=== PATIENT | male | born 1950 | race Caucasian/White ===

== ENCOUNTER → 2017-09-14 | Outpatient (CLI) | payer MEDICARE, OTHER ==
--- NOTE | 2017-09-14 13:45 | US ---
EXAMINATION TYPE: US thyroid st tissue head/neck DATE OF EXAM: 09/14/2017 COMPARISON: NONE CLINICAL HISTORY: E04.1 thyroid nodule; patient feels nodes superior neck bilaterally GLAND SIZE: Right Lobe: 5.1 x 1.6 x 1.7cm cm Overall Parenchyma: homogenous Left Lobe: 4.6 x 1.7 x 1.6 cm Overall Parenchyma: homogeneous Isthmus Thickness: 0.5 cm NODULES RIGHT: # of nodules measured on right: 0 LEFT: # of nodules measured on left: 0 ISTHMUS: # of nodules measured in the isthmus: 0 Bilateral neck scanned: Superior to right thyroid a lymph node is seen = 1.6 x 0.7 x 0.6cm and superi or to left thyroid a lymph node is seen = 1.0 x 0.6 x 0.4cm. Thyroid gland is normal in size and fairly homogeneous echotexture without evidence of suspicious serena id or cystic nodules. There are benign-appearing subcentimeter lymph nodes throughout the neck bilate rally with retention of normal fatty hilum marked by technologist on images saved. IMPRESSION: Unremarkable study as detailed above
== END | disposition home or self-care (01) ==
LOC: RADUSWWP 12:03
PROVIDERS: ATTEND Otolaryngology
DX: E04.1 Nontoxic single thyroid nodule (principal)
CPT/HCPCS: 76536

== ENCOUNTER → 2018-06-05 | Outpatient (CLI) | payer MEDICARE, OTHER | END | disposition home or self-care (01) | LOC: LABWHC1 12:37 | PROVIDERS: ATTEND Otolaryngology | DX: J30.89 Other allergic rhinitis (principal) | CPT/HCPCS: 36415 ==

== ENCOUNTER → 2020-09-16 | Outpatient (CLI) | payer MEDICARE, OTHER ==
--- NOTE | 2020-09-17 03:21 | MR ---
EXAMINATION TYPE: MR iac wo/w con DATE OF EXAM: 09/16/2020 COMPARISON: None HISTORY: Vertigo, hearing changes, attention to left. CONTRAST: Standard multiplanar, multisequence MRI departmental protocol utilizing 10 mL intravenous Gadavist ga dolinium contrast. Ventricles have fairly normal size. There is no mass effect nor midline shift. There is no sign of in tracranial hemorrhage. Diffusion images show no evidence of an acute infarct. There is mild cerebral atrophy. On the T2 and FLAIR images there are scattered multiple foci of abnormal increased signal at the alcocer-white matter junction of both cerebral hemispheres. These measure up to 5 mm and the total number is more than 50. This is consistent with microvascular ischemia. The brainstem is intact. There is no evidence of a posterior fossa mass. There is good visualization of the internal auditory canals. The acoustic nerve and vestibular nerves appear normal. There is nor mal flow-void in the vertebral and basilar arteries. The contrast images show no pathologic enhancement. Optic chiasm appears normal. Pituitary stalk is i n the midline. There is no evidence of a sellar mass. There is some mucosal thickening in the maxilla ry and ethmoid and frontal and sphenoid sinuses. IMPRESSION: There is cerebral atrophy appropriate for age. No posterior fossa focal abnormality. White matter changes consistent with chronic small vessel ischemia. There is mild pansinusitis.
== END | disposition home or self-care (01) ==
LOC: RADMRIMAIN 15:33
PROVIDERS: ATTEND Nurse Practitioner Family
DX: G31.9 Degenerative disease of nervous system, unspecified (principal); J32.4 Chronic pansinusitis; I67.82 Cerebral ischemia; H93.19 Tinnitus, unspecified ear; H93.3X9 Disorders of unspecified acoustic nerve; H91.90 Unspecified hearing loss, unspecified ear
CPT/HCPCS: 70553; A9585

== ENCOUNTER → 2023-04-24 | Outpatient (CLI) | payer MEDICARE, OTHER ==
[2023-04-24 11:05] VITALS: BP 147/88; PULSE 86; RESP 15; TEMP 97.6
--- NOTE | 2023-04-24 14:21 | P.PAINPG ---
PQRS Measure Charge Sheet Comment: HISTORY OF PRESENT ILLNESS: A 73 yr old male as a referral from Dr Lisa Lott presents today w severe and chronic neck pain x 5 mo secondary to DDD, spondylosis and facet arthropathy without myelopathy for evaluation. Pt states pain level is provoked at 6 /10 in intensity, constant, localized in the center cervical spine, predominantly axial, achy in character w occasional shooting pain towards the BUEs R> L. Pain is provoked by non activity. Pain is alleviated by medications (Flexeril 10mg, Tyl), repositioning and rest. Cervical disability score at 26. PMH: OA, CAD, Hyperlipidemia, CVA/ TIA, GERD PSH: Cardiac Stent (2014), Lumbar Fusin (1998), LESIs (2019), Lumbar RFA (2020) SH: Never smoker, Occasional ETOH use, No illicit drug use. . FH: Bro- CAD. All: See list Meds: See list REVIEW OF ORGAN SYSTEMS: CONSTITUTIONAL: No fevers or chills. No recent weight loss . NEUROLOGICAL: + numbness and tingling along the distal extremities. No seizure disorders or headaches. MUSCULOSKELETAL: + pain PSYCHIATRIC: Denies current depression or suicidal thoughts. Physical Examinations : Constitutional : Cooperative , not in acute distress . Neurologic : Cranial nerve II to XII intact. No focal neurological deficits. Psychiatric : alert & oriented x 3. Matching mood & appropriate affect. Judgment & insight intact. Musculoskeletal : Cervical Spine Motor strength in the deltoid and biceps: Normal right side. Normal Left side Motor strength biceps and the wrist ext ensors: Normal right side . Normal left side Motor strength in the triceps muscle: Normal right side. Normal left side Deep tendon reflexes: Normal at the biceps. Normal at Brachioradialis. Normal at triceps Vertebral body tenderness to deep palpation Cervical facet loading test: positive bilaterally over C4-C5, C5-C6 Spurling test: positive bilaterally Neck distraction test: positive bilaterally Alecia sign: positive bilaterally Lumbar spine Motor strength lower extremities ,thigh and legs 5/5 Right side , 5/5 Left side Deep tendon reflexes : Normal Knee Jerk. Normal Ankle Jerk Vertebral body tenderness over Jackman Test positive Lumbar facet Loading Test: positive Right / positive Left Range of motion of the lumbar spine Flexion 30 degrees, extension 10 degrees Straight Leg Raise test: Left/ Right positive at degrees Arjun test: positive right / positive left. Severe tenderness over the Sacroiliac joint on the Right / Left sides Gaenslen test: positive bilaterally Seated flexion test: positive bilaterally. Sacral spine : Severe tenderness over the Sacroiliac joint: right side / left side Range of motion: Flexion of the lumbar spine <60 degrees Range of motion: Extension of the lumb ar spine <20 degrees Gaenslen's Test positive Arjun test: positive right side / left side Thigh Thrust Test Sacral Thrust Test Imaging: MRI noncontrast of the cervical spine from 04/06/23 reviewed Assessment/ Plan : Cervical DDD Recommendation of BL MBB C4-C5, C5-C6 #1. May need a series of injections, up until RFA, for optimal pain relief. Risks, benefits of procedure discussed and patient verbalized understanding. Admits to anti- coagulant use or medical history of diabetes. Protocol for discontinuation/ continuation of medications tomas procedure discussed. Minimal anesthesia provided, if clinically indicated, consisting of Versed and Fentanyl. All questions answered. I have spent greater than 30 minutes on patient care today. Dr Beebe was available by phone for the evaluation of this patient. The time was used to r eview the medical records including relevant urine studies and Prescription history (MAPs), review of the available imaging, evaluation and examination of the patient, coordination of care with the medical staff and if applicable referring physicians, as well as creation of the medical record PQRS Narrative: Smoking Status Never smoker Home Medications: Ambulatory Orders Aspirin [Adult Low Dose Aspirin EC] 81 mg PO DAILY 09/11/17 Clopidogrel [Plavix] 75 mg PO DAILY 09/11/17 Doxylamine Succinate [Unisom] 25 mg PO HS 09/11/17 Fluticasone Propion/Salmeterol [Advair 250-50 Diskus] 1 inhalation INHALATION DAILY 09/11/17 Loratadine 10 mg PO DAILY 09/11/17 Montelukast [Singulair] 10 mg PO DAILY 09/11/17 Naproxen Sodium 2 tab PO BID 09/11/17 Non Formulary Drug 1 spray NASAL DAILY 09/11/17 Non Formulary Drug 1 tab PO DAILY 09/11/17 Pantoprazole Sodium 40 mg PO DAILY 09/11/17 Rosuvastatin Calcium [Crestor] 5 mg PO DAILY 09/11/17 Controlled Substance Measures - Controlled Substance Measures Is patient prescribed a controlled substance at discharge?: No
== END ==
LOC: PNWHC3 10:09
PROVIDERS: ATTEND Specialist
DX: M50.321 Other cervical disc degeneration at C4-C5 level (principal); M50.322 Other cervical disc degeneration at C5-C6 level; M19.90 Unspecified osteoarthritis, unspecified site; I25.10 Atherosclerotic heart disease of native coronary artery without angina pectoris; E78.5 Hyperlipidemia, unspecified; K21.9 Gastro-esophageal reflux disease without esophagitis; Z86.73 Personal history of transient ischemic attack (TIA), and cerebral infarction without residual deficits; Z98.1 Arthrodesis status; Z79.82 Long term (current) use of aspirin; Z79.02 Long term (current) use of antithrombotics/antiplatelets; Z91.018 Allergy to other foods
CPT/HCPCS: 99211

== ENCOUNTER 2023-06-01 09:39 | Day surgery (SDC) | payer MEDICARE, OTHER ==
[2023-06-01] MEDS: LACTATED RINGERS 1,000 ML IV SCH (10:08)
[2023-06-01] MEDS ORDERED: fentaNYL (PF) 50 MCG/ML 2 ML AMP ONE (10:10)
[2023-06-01] MEDS ORDERED: MIDAZOLAM 2 MG/2 ML VIAL ONE (10:10)
[2023-06-01] MEDS ORDERED: ROPIVACAINE 5MG/ML 20ML VIAL ONE (10:18)
[2023-06-01 10:30] VITALS: TEMP 97.9
--- NOTE | 2023-06-01 10:41 | P.PCN ---
Date of Procedure: 06/01/23 Procedure(s) Performed: PREOPERATIVE DIAGNOSIS: 1-Cervical Spondylosis with Facet Arthropathy.without myelopathy. 2-cervical degenerative disc disease POSTOPERATIVE DIAGNOSIS:1-cervical spondylosis with facet arthropathy without myelopathy. 2-cervical degenerative disc disease PROCEDURES: Diagnostic bilateral C4, C5 ,C6 medial branch blocks, with fluoroscopic guidance (fluoroscopy images available in radiology department ) ( to target the facet joint at bilateral C4- 5 , C5- 6 )#1st ANESTHESIA: Monitored anesthesia care as per anesthesia department . EBL: Minimal PROCEDURE INDICATION: The patient with neck pain secondary to cervical arthropathy unresponsive to more conservative treatments. PROCEDURE DESCRIPTION / TECHNIQUE: The patient was seen and identified in the preoperative area. Risks, benefits, complications, and alternatives were discussed with the patient, the patient agreed to proceed with the procedure and signed the consent. IV was started. Vital signs remained stable throughout the procedure. Patient was taken to the OR and time out was completed. The patient was placed in the Lateral position on the procedure table. The cervical area was prepped and draped in the usual sterile fashion. Critical pause was taken. Vital signs were closely monitored during the procedure. Conscious sedation was used during the procedure to decrease patients anxiety. Using cross-table lateral fluoroscopy, the centroid of the trapezoid of right C4 , C5 and C6, was identified, marked, and localized with 1% lidocaine 1 ml at each level for skin and Sub Q infiltrations . Subsequently, a 22 G 3 spinal needle was advanced guided by fluoroscopy to the centroid of the trapezoid of Right C4 , C5, C6 . [place] tip position was confirmed at the centroid of the trapezoids of Right C4 , C5 ,C6 with anteroposterior fluoroscopy. Subsequently, 2 ml of preservative-free Ropivacaine 0.5% and half ml was injected after negative aspiration for blood and CSF. [place] was then removed intact the same procedure was repeated at the left C4 , C5 , and C6 levels. COMPLICATIONS: No acute complications. COMMENTS: DISPOSITION / PLANS: The patient was placed in a supine position and transferred to the recovery area in a stable condition for observation and was discharged from the recovery room after meeting discharge criteria. Home discharge instructions given to the patient by the staff. The patient was reexamined prior to discharge. The patient will schedule a follow up in the clinic in 2-4 weeks.
[2023-06-01 11:14] VITALS: BP 138/83; PULSE 88; RESP 16
--- NOTE | 2023-06-01 11:52 | FL ---
EXAMINATION TYPE: FL guided pain mgmt statistic Intraoperative/procedural fluoroscopic services were provided. Total fluoroscopy time is 53.2 seconds with a total of 4 submitted images to PACS. Please s ee the operative/procedural note for further details. DAP: 0.01152 mGym2
== END 2023-06-01 11:25 | disposition home or self-care (01) ==
LOC: ORPAIN 09:39
PROVIDERS: ATTEND Specialist
DX: M47.812 Spondylosis without myelopathy or radiculopathy, cervical region (principal); M50.322 Other cervical disc degeneration at C5-C6 level; E78.5 Hyperlipidemia, unspecified; I25.10 Atherosclerotic heart disease of native coronary artery without angina pectoris; J45.909 Unspecified asthma, uncomplicated; K21.9 Gastro-esophageal reflux disease without esophagitis; Z79.899 Other long term (current) drug therapy
CPT/HCPCS: 64490; 64491 ×2; J2250; J3010; J2795

== ENCOUNTER → 2023-06-11 | Outpatient (CLI) | payer MEDICARE, OTHER ==
[2023-06-11 11:34] VITALS: BP 132/84; PULSE 74; RESP 15; TEMP 98.2
--- NOTE | 2023-06-11 14:19 | P.PAINPG ---
PQRS Measure Charge Sheet Comment: HISTORY OF PRESENT ILLNESS: A 73 yr old male presents today w severe and chronic neck pain x 5 mo secondary to DDD, spondylosis and facet arthropathy without myelopathy for evaluation s/p BL MBB C4-C6 #1. Pt states he experienced 90 % pain relief x 7 days s/p procedure. Pt states pain level is provoked at 6 /10 in intensity, constant, localized in the center cervical spine, predominantly axial, achy in character w occasional shooting pain towards the BUEs R> L. Pain is provoked by lateral flexion and non activity. Pain is alleviated by medication, repositioning and rest. Cervical disability score at 25. Interventional procedures include BL MBB C4-C6 x1 Medications include Flexeril 10mg, Tyl REVIEW OF ORGAN SYSTEMS: CONSTITUTIONAL: No fevers or chills. No recent weight loss. NEUROLOGICAL: + numbness and tingling along the distal extremities. No seizure disorders or headaches. MUSCULOSKELETAL: + pain PSYCHIATRIC: Denies current depression or suicidal thoughts. Physical Examinations : Constitutional : Cooperative , not in acute distress . Neurologic : Cranial nerve II to XII intact. No focal neurological deficits. Psychiatric : alert & oriented x 3. Matching mood & appropriate affect. Judgment & insight intact. Musculoskeletal : Cervical Spine Motor strength in the deltoid and biceps: Normal right side. Normal Left side Motor strength biceps and the wrist extensors: Normal right side . Normal left side Motor strength in the triceps muscle: Normal right side. Normal left side Deep tendon reflexes: Normal at the biceps. Normal at Brachioradialis. Normal at triceps Vertebral body tenderness to deep palpation Cervical facet loading test: positive bilaterally over C4-C5, C5-C6 Spurling test: positive bilaterally Neck distraction test: positive bilaterally Alecia sign: positive bilaterally Lumbar spine Motor strength lower extremities ,thigh and legs 5/5 Right side , 5/5 Left side Deep tendon reflexes : Normal Knee Jerk. Normal Ankle Jerk Vertebral body tenderness over Jackman Test positive Lumbar facet Loading Test: positive Right / positive Left Range of motion of the lumbar spine Flexion 30 degrees, extension 10 degrees Straight Leg Raise test: Left/ Right positive at degrees Arjun test: positive right / positive left. Severe tenderness over the Sacroiliac joint on the Right / Left sides Gaenslen test: positive bilaterally Seated flexion test: positive bilaterally. Sacral spine : Severe tenderness over the Sacroiliac joint: right side / left side Range of motion: Flexion of the lumbar spine <60 degrees Range of motion: Extension of the lumbar spine <20 degrees Gaenslen's Test positive Arjun test: positive right side / left side Thigh Thrust Test Sacral Thrust Test Imaging: MRI noncontrast of the cervical spine from 04/06/23 reviewed Assessment/ Plan : Cervical DDD Recommendation of BL MBB C4-C5, C5-C6 #2. May need a series of injections, up until RFA, for optimal pain relief. Risks, benefits of procedure discussed and patient verbalized understanding. Admits to anti- coagulant use or medical history of diabetes. Protocol for discontinuation/ continuation of medications tomas procedure discussed. Minimal anesthesia provided, if clinically indicated, consisting of Versed and Fentanyl. All questions answered. I have spent greater than 30 minutes on patient care today. Dr Beebe was available by phone for the evaluation of this patient. The time was used to review the medical records including relevant urine studies and Prescription history (MAPs), review of the available imaging, evaluation and examination of the patient, coordination of care with the medical staff and if applicable referring physicians, as well as creation of the medical record - Pain Location Bilateral Neck Non-Pharmacological Interventions: Inactivity, Position/Reposition Pharmacological Interventions: Epidural PQRS Narrative: Smoking Status Never smoker Hx Alcohol Use (MH) Yes Home Medications: Ambulatory Orders Aspirin [Adult Low Dose Aspirin EC] 81 mg PO QAM 09/11/17 Loratadine 10 mg PO HS 09/11/17 Pantoprazole Sodium 40 mg PO BID 09/11/17 Rosuvastatin Calcium [Crestor] 5 mg PO HS 09/11/17 Amitriptyline HCl 50 mg PO HS 05/30/23 Cyclobenzaprine [Flexeril] 10 mg PO HS 05/30/23 Melatonin [Melatonin ER] 10 mg PO HS 05/30/23 Controlled Substance Measures - Controlled Substance Measures Is patient prescribed a controlled substance at discharge?: No
== END ==
LOC: PNWHC3 11:18
PROVIDERS: ATTEND Specialist
DX: M50.30 Other cervical disc degeneration, unspecified cervical region (principal); Z91.048 Other nonmedicinal substance allergy status; Z91.018 Allergy to other foods
CPT/HCPCS: 99211

== ENCOUNTER → 2023-07-06 | Day surgery (SDC) | payer MEDICARE, OTHER ==
[~2023-07-06] MED LIST: ROPIVACAINE 5MG/ML 20ML VIAL ONE; fentaNYL (PF) 50 MCG/ML 2 ML AMP ONE
[2023-07-06] MEDS: LACTATED RINGERS 1,000 ML IV SCH (08:42)
[2023-07-06 08:44] LABS: Glucose,Whole Blood 107 mg/dL (70-110)
[2023-07-06 09:13] VITALS: RESP 18; TEMP 98.9
--- NOTE | 2023-07-06 09:16 | P.PCN ---
Date of Procedure: 07/06/23 Surgeon: July Martinez Pathology: none sent Condition: stable Disposition: PACU Description of Procedure: PREOPERATIVE DIAGNOSIS: Cervical Spondylosis with Facet Arthropathy.without myelopathy POSTOPERATIVE DIAGNOSIS: Cervical Spondylosis Facet Arthropathy. Without myelopathy PROCEDURES: Diagnostic Bilateral medial branchs block with fluoroscopic guidance for levels C4, C5, and C6 bilaterally ANESTHESIA: Local with 1% lidocaine; IV sedation by the anesthesia Departmentand EBL: Minimal PROCEDURE INDICATION: The patient with neck pain secondary to cervical arthropathy unresponsive to more conservative treatments. PROCEDURE DESCRIPTION / TECHNIQUE: The patient was seen and identified in the preoperative area. Risks, benefits, complications, and alternatives were discussed with the patient, the patient agreed to proceed with the procedure and signed the consent. IV was started. Vital signs remained stable throughout the procedure. Patient was taken to the OR and time out was completed. The patient was placed in the supine position on the procedure table. . The cervical area was prepped with chloraprep and draped in the usual sterile fashion. Critical pause was taken. Vital signs were closely monitored during the procedure. Conscious sedation was used during the procedure to decrease patients anxiety. Using cross-table lateral fluoroscopy, the centers of the trapezoid of C4,C5, and C6 were identified, marked, and localized with 1% lidocaine 1 ml at each level for skin and Sub Q infiltrations . Subsequently, a 25 G 3.5 inch spinal needle was advanced guided by fluoroscopy to the target points mentioned above. Subsequently, 0.5 MLS of ropivacaine 0.5% was injected at each level after negative aspiration for blood and CSF. [place] were then removed intact the same procedure was repeated ont the left side in the same manner. COMPLICATIONS: No acute complications. DISPOSITION / PLANS: The patient was placed in a supine position and transferred to the recovery area in a stable condition for observation and was discharged from the recovery room after meeting discharge criteria. Home discharge instructions given to the patient by the staff. The patient was reexamined prior to discharge. The patient will schedule a follow up in the clinic in 2-4 weeks.
[2023-07-06] MEDS: IV FLUID CONTINUATION 700 ML IV ONE (09:22)
--- NOTE | 2023-07-06 09:30 | FL ---
Fluoroscopy INDICATION: Pain FINDINGS: Fluoroscopy time: 13.1 seconds. Total dose area product (DAP) in uGy*m?, mGy*cm? (or similar): 0.0149 Images obtained: 8. IMPRESSION: 1. Documentation of fluoroscopy.
[2023-07-06 09:58] VITALS: BP 115/78; PULSE 78
== END ==
LOC: ORPAIN 08:04
PROVIDERS: ATTEND Anesthesiology
DX: M47.812 Spondylosis without myelopathy or radiculopathy, cervical region (principal); Z79.82 Long term (current) use of aspirin
CPT/HCPCS: 64490; 64491 ×2; J3010; J2795

== ENCOUNTER → 2023-07-26 | Outpatient (CLI) | payer MEDICARE, OTHER ==
[2023-07-26 12:54] VITALS: BP 151/82; PULSE 112; RESP 15; TEMP 98.5
--- NOTE | 2023-07-26 14:35 | P.PAINPG ---
PQRS Measure Charge Sheet Comment: HISTORY OF PRESENT ILLNESS: A 73 yr old male presents today w severe and chronic neck pain > 6 mo secondary to DDD, spondylosis and facet arthropathy without myelopathy for evaluation s/p BL MBB C4-C6 #2. Pt states he experienced 90 % pain relief x 14 days s/p procedure. Pt states pain level is provoked at 7 /10 in intensity, constant, localized in the center cervical spine, predominantly axial, achy in character w occasional shooting pain towards the BUEs R> L. Pain is provoked by lateral flexion and non activity. Pain is alleviated by medication, repositioning and rest. Cervical disability score at 25. Interventional procedures include BL MBB C4-C6 x2 Medications include Flexeril 10mg, Tyl REVIEW OF ORGAN SYSTEMS: CONSTITUTIONAL: No fevers or chills. No recent weight loss. NEUROLOGICAL: + numbness and tingling along the distal extremities. No seizure disorders or headaches. MUSCULOSKELETAL: + pain PSYCHIATRIC: Denies current depression or suicidal thoughts. Physical Examinations : Constitutional : Cooperative , not in acute distress . Neurologic : Cranial nerve II to XII intact. No focal neurological deficits. Psychiatric : alert & oriented x 3. Matching mood & appropriate affect. Judgment & insight intact. Musculoskeletal : Cervical Spine Motor strength in the deltoid and biceps: Normal right side. Normal Left side Motor strength biceps and the wrist extensors: Normal right side . Normal left side Motor strength in the triceps muscle: Normal right side. Normal left side Deep tendon reflexes: Normal at the biceps. Normal at Brachioradialis. Normal at triceps Vertebral body tenderness to deep palpation Cervical facet loading test: positive bilaterally over C4-C5, C5-C6 Spurling test: positive bilaterally Neck distraction test: positive bilaterally Alecia sign: positive bilaterally Lumbar spine Motor strength lower extremities ,thigh and legs 5/5 Right side , 5/5 Left side Deep tendon reflexes : Normal Knee Jerk. Normal Ankle Jerk Vertebral body tenderness over Jackman Test positive Lumbar facet Loading Test: positive Right / positive Left Range of motion of the lumbar spine Flexion 30 degrees, extension 10 degrees Straight Leg Raise test: Left/ Right positive at degrees Arjun test: positive right / positive left. Severe tenderness over the Sacroiliac joint on the Right / Left sides Gaenslen test: positive bilaterally Seated flexion test: positive bilaterally. Sacral spine : Severe tenderness over the Sacroiliac joint: right side / left side Range of motion: Flexion of the lumbar spine <60 degrees Range of motion: Extension of the lumbar spine <20 degrees Gaenslen's Test positive Arjun test: positive right side / left side Thigh Thrust Test Sacral Thrust Test Imaging: MRI noncontrast of the cervical spine from 04/06/23 reviewed Assessment/ Plan : Cervical DDD Recommendation of BL RFA C4-C5, C5-C6. Exhibited optimal pain relief w prior BL MBB procedures. Risks, benefits of procedure discussed and patient verbalized understanding. Admits to anti- coagulant use or medical history of diabetes. Protocol for discontinuation/ continuation of medications tomas procedure discussed. Minimal anesthesia provided, if clinically indicated, consisting of Versed and Fentanyl. All questions answered. I have spent greater than 30 minutes on patient care today. Dr Beebe was available by phone for the evaluation of this patient. The time was used to review the medical records including relevant urine studies and Prescription history (MAPs), review of the available imaging, evaluation and examination of the patient, coordination of care with the medical staff and if applicable referring physicians, as well as creation of the medical record PQRS Narrative: Smoking Status Never smoker Hx Alcohol Use (MH) Yes Home Medications: Ambulatory Orders Aspirin [Adult Low Dose Aspirin EC] 81 mg PO QAM 09/11/17 Loratadine 10 mg PO HS 09/11/17 Pantoprazole Sodium 40 mg PO BID 09/11/17 Rosuvastatin Calcium [Crestor] 5 mg PO HS 09/11/17 Amitriptyline HCl 50 mg PO HS 05/30/23 Cyclobenzaprine [Flexeril] 10 mg PO HS 05/30/23 Melatonin [Melatonin ER] 10 mg PO HS 05/30/23 Sucralfate [Carafate] 1 gm PO QID 07/03/23 HYDROcodone/APAP 7.5-325MG [[place] 7.5-325] 1 tab PO Q4H PRN 3 Days #15 tab 07/26/23 Controlled Substance Measures - Controlled Substance Measures Is patient prescribed a controlled substance at discharge?: Yes When asked, does pt state using other controlled substances?: No If prescribed controlled substance>3 days was MAPS reviewed?: Prescribed <3 Days
== END ==
LOC: PNWHC3 11:00
PROVIDERS: ATTEND Specialist
DX: M50.321 Other cervical disc degeneration at C4-C5 level (principal); M50.322 Other cervical disc degeneration at C5-C6 level; M47.812 Spondylosis without myelopathy or radiculopathy, cervical region; G89.29 Other chronic pain; Z91.018 Allergy to other foods; Z88.8 Allergy status to other drugs, medicaments and biological substances
CPT/HCPCS: 99211